=== PATIENT | female | born 1985 | race American Indian/Alaskan Native ===

== ENCOUNTER 2021-10-15 12:47 | Emergency (ER) | payer OTHER ==
[2021-10-15] MEDS ORDERED: ONDANSETRON 4 MG/2 ML INJ IV ONE (13:14)
[2021-10-15] MEDS ORDERED: SODIUM CHLORIDE 0.9% 1000 ML 1,000 ML IV ONE (13:14)
[2021-10-15] MEDS ORDERED: MORPHINE 4 MG/1 ML INJ IV ONE (13:14)
--- NOTE | 2021-10-15 13:19 | Emergency Department Report ---
HPI - General Chief Complaint: Syncope Time Seen by Provider: 10/15/21 13:06 - HPI HPI: Room 5 The patient is a 36-year-old female present with a chief complaint of near syncope. The patient donated plasma this morning and after leaving the facility she walked outside and states she began to feel hot and nauseous. Patient later self down on the ground and states she has had abdominal cramping. EMS was called and found the patient hypotensive 84/46. An IV was started and patient was administered normal saline 500 mL and upon arrival to the ED her blood pressure improved to 112/60 with heart rate of 78. Patient denies syncopal episode. Patient states she feels improved but still has some cramping in the abdomen ED Past Medical Hx - Past Medical History Previous Medical History?: Yes Hx GERD: Yes - Surgical History Past Surgical History?: No - Family History Family history: no significant - Social History Smoking Status: Never Smoker Substance Use Type: None (Denies illicit drug use) - Medications Home Medications: Home Medications Medication Instructions Recorded Confirmed Last Taken Type Ondansetron [Zofran ODT TAB] 8 mg PO Q8HR #20 tab.rapdis 10/15/21 Unknown Rx ED Review of Systems ROS: Stated complaint: SYNCOPAL Other details as noted in HPI Constitutional: no symptoms reported Eyes: denies: eye pain ENT: denies: throat pain Respiratory: no symptoms reported Cardiovascular: denies: chest pain Endocrine: no symptoms reported Gastrointestinal: abdominal pain, nausea. denies: vomiting Genitourinary: denies: dysuria Musculoskeletal: denies: back pain Neurological: denies: headache Physical Exam - Physical Exam Vital Signs: Vital Signs 10/15/21 12:55 Temperature 97.7 F Pulse Rate 78 Respiratory 16 Rate Blood Pressure 112/85 [Left] O2 Sat by Pulse 98 Oximetry Physical Exam: GENERAL: The patient is well-developed well-nourished female lying on stretcher using cell phone not appearing to be in acute distress. [] HEENT: Normocephalic. Atraumatic. Extraocular motions are intact. Patient has moist mucous membranes. NECK: Supple. Trachea midline CHEST/LUNGS: Clear to auscultation. There is no respiratory distress noted. HEART/CARDIOVASCULAR: Regular. There is no tachycardia. There is no gallop rub or murmur. ABDOMEN: Abdomen is soft, nontender. Patient has normal bowel sounds. There is no abdominal distention. SKIN: There is no rash. There is no edema. There is no diaphoresis. NEURO: The patient is awake, alert, and oriented. The patient is cooperative. The patient has no focal neurologic deficits. The patient has normal speech. Cranial nerves II through XII grossly intact. GCS 15 MUSCULOSKELETAL: There is no evidence of acute injury. ED Course Vital Signs 10/15/21 12:55 Temperature 97.7 F Pulse Rate 78 Respiratory 16 Rate Blood Pressure 112/85 [Left] O2 Sat by Pulse 98 Oximetry - Reevaluation(s) Reevaluation #1: 10/15/21 16:05 Patient states she feels improved ED Medical Decision Making - Lab Data Result diagrams: 10/15/21 13:29 10/15/21 13:29 Laboratory Tests 10/15/21 10/15/21 10/15/21 05:21 13:29 13:29 WBC 7.3 RBC 4.93 Hgb 14.9 H Hct 42.6 MCV 86 MCH 30 MCHC 35 H RDW 13.7 Plt Count 368 Lymph % (Auto) 33.2 [place] % (Auto) 6.9 Eos % (Auto) 0.3 Baso % (Auto) 0.2 Lymph # (Auto) 2.4 [place] # (Auto) 0.5 Eos # (Auto) 0.0 Baso # (Auto) 0.0 Seg Neutrophils % 59.4 Seg Neutrophils # 4.3 Sodium 139 Potassium 3.9 Chloride 106.5 Carbon Dioxide 25 Anion Gap 11 BUN 10 Creatinine 0.8 Estimated GFR > 60 BUN/Creatinine Ratio 13 Glucose 117 H Calcium 8.3 L Total Bilirubin 0.30 AST 17 ALT 24 Alkaline Phosphatase 66 Total Creatine Kinase 262 H CK-MB (CK-2) 2.6 CK-MB (CK-2) Rel Index 0.9 Troponin T < 0.010 Total Protein 6.1 L Albumin 3.6 L Albumin/Globulin Ratio 1.4 Lipase 22 Urine Color Yellow Urine Turbidity Slightly cloudy Urine pH 6.0 Ur Specific [place] 1.015 Urine Protein <15 mg/dl Urine Glucose (UA) Negative Urine Ketones Negative Urine Blood Negative Urine Nitrite Negative Ur Reducing Substances Not Reportable Urine Bilirubin Negative Urine Ictotest Not Reportable Urine Urobilinogen < 2.0 Ur Leukocyte Esterase Negative Urine WBC (Auto) < 1.0 Urine RBC (Auto) < 1.0 U Epithel Cells (Auto) < 1.0 Urine Mucus Few Urine HCG, Qual Negative - Differential Diagnosis Hypovolemia Critical care attestation.: If time is entered above; I have spent that time in minutes in the direct care of this critically ill patient, excluding procedure time. ED Disposition Clinical Impression: Hypovolemia Disposition: 01 HOME / SELF CARE / HOMELESS Is pt being admited?: No Does the pt Need Aspirin: No Condition: Stable Instructions: Rehydration, Adult Additional Instructions: Return to the emergency department should you develop worsening symptoms, inability to tolerate food or liquids, high fever or any other concerns Prescriptions: Ondansetron [Zofran ODT TAB] 8 mg PO Q8HR #20 tab.rapdis Referrals: PRIMARY CARE, [Primary Care Provider] - 3-5 Days Time of Disposition: 16:06
[2021-10-15 14:05] LABS: Basophils % (Auto) 0.2 % (0.0-1.8); Eosinophils % (Auto) 0.3 % (0.0-4.3); Hematocrit 42.6 % (30.3-42.9); Hemoglobin 14.9 gm/dl (10.1-14.3); Lymphocytes # (Auto) 2.4 K/mm3 (1.2-5.4); Lymphocytes % (Auto) 33.2 % (13.4-35.0); Mean Corpuscular HGB Conc 35 % (30-34); Mean Corpuscular Volume 86 fl (79-97); Monocytes # (Auto) 0.5 K/mm3 (0.0-0.8); Monocytes % (Auto) 6.9 % (0.0-7.3); Platelet Count 368 K/mm3 (140-440); Red Blood Count 4.93 M/mm3 (3.65-5.03); Red Cell Distribution Width 13.7 % (13.2-15.2)
[2021-10-15 14:08] LABS: Creatine Kinase MB 2.6 ng/mL (0.0-4.0)
[2021-10-15 14:10] LABS: Alanine Aminotransferase 24 units/L (7-56); Albumin 3.6 g/dL (3.9-5); BUN/Creatinine Ratio 13; Blood Urea Nitrogen 10 mg/dL (7-17); Calcium 8.3 mg/dL (8.4-10.2); Hemolysis Index 4
[2021-10-15 15:32] LABS: Mucus,Urine FEW /HPF; RBC,Urine < 1.0 /HPF (0.0-6.0); WBC,Urine < 1.0 /HPF (0.0-6.0)
[2021-10-15 15:39] LABS: Bilirubin,Urine Negative (Negative); Blood,Urine Negative (Negative); Color,Urine Yellow (Yellow); Protein,Urine <15 mg/dL mg/dL (Negative); Urobilinogen,Urine < 2.0 mg/dL (<2.0)
[2021-10-15 15:40] LABS: HCG Qualitative,Urine Negative (Negative)
[2021-10-15 15:56] VITALS: BP 133/84
== END 2021-10-15 16:19 | disposition home or self-care (01) ==
LOC: EDSEX → ED 12:47
DX: E86.1 Hypovolemia (principal); K21.9 Gastro-esophageal reflux disease without esophagitis; Z88.6 Allergy status to analgesic agent; Z88.5 Allergy status to narcotic agent; Z79.899 Other long term (current) drug therapy
CPT/HCPCS: 36415; 80053; 81001; 81025; 82550; 82553; 83690; 84484; 85025; 96361; 96374; 96375; 99284; J2270; J2405; J7030